=== PATIENT | female | born 1950 | race Caucasian/White ===

== ENCOUNTER → 2017-05-28 | Outpatient (CLI) | payer MEDICARE ==
--- NOTE | 2017-05-28 15:39 | Diagnostic Imaging Report ---
PROCEDURE: MRI lumbar spine. TECHNIQUE: Multiplanar, multisequence MRI of the lumbar spine was performed without contrast. INDICATION: Back pain. Left leg weakness. FINDINGS: There is minimal retrolisthesis of L5 over S1, otherwise the alignment of the posterior spinal line is satisfactory. The vertebral body heights are preserved. There is disc height loss of moderate degree at L4/5 and L5/S1. The bone marrow signal demonstrates minimal reactive changes at the endplates around L4/5 and L5/S1. No suspicious marrow focal lesion is seen. The conus medullaris and the cauda equina appear unremarkable. T12/L1: No disc herniation, no spinal canal or foraminal stenosis. L1/2: No disc herniation, no spinal canal or foraminal stenosis. L2/3: No disc herniation. There is mild to moderate facet hypertrophy. No central canal, lateral recess or foraminal stenosis however. L3/4: There is a minimal disc bulge and mild to moderate facet hypertrophy. No central canal stenosis or lateral recess stenosis. No foraminal narrowing. L4/5: There is disc height loss and diffuse disc bulge. There is mild to moderate facet hypertrophy on the right side with ligamentum flavum thickening. The central canal demonstrates no stenosis. The lateral recess on the right side demonstrates mild stenosis and on the left side demonstrates mild to moderate stenosis. The foramina demonstrate moderate to severe stenosis on the left and mild stenosis on the right side. L5/S1: There is a diffuse disc bulge, minimal retrolisthesis and moderate disc height loss at this level. No central canal stenosis. The lateral recess demonstrates minimal narrowing bilaterally. The foramina demonstrate moderate stenosis on the left and moderate to severe stenosis on the right side. IMPRESSION: Lower lumbar spine disc and facet degenerative changes with no high-grade spinal canal stenosis. There is moderate to severe foraminal stenosis on the right side at L5/S1 and on the left at L4/5 level. Dictated by: Dictated on workstation # [id number]
== END ==
LOC: RAD 13:32
PROVIDERS: ATTEND Neurological Surgery
DX: M51.36 Other intervertebral disc degeneration, lumbar region (principal); M48.06 Spinal stenosis, lumbar region
CPT/HCPCS: 72148

== ENCOUNTER → 2023-05-15 | Outpatient (CLI) | payer MEDICARE ==
--- NOTE | 2023-05-15 17:35 | Diagnostic Imaging Report ---
INDICATION: Right-sided rib pain. PA chest and AP and oblique views of the right ribs were obtained. Heart is borderline in size. There is no focal infiltrate or pneumothorax or pleural fluid. The right ribs appear intact with no fracture or erosive bony lesion. IMPRESSION: Negative right ribs and chest. Dictated by: Dictated on workstation # [id number]
== END ==
LOC: RAD 11:56
PROVIDERS: ATTEND Physician Assistant
DX: R07.81 Pleurodynia (principal)
CPT/HCPCS: 71101